=== PATIENT | male | born 1980 | race Caucasian/White ===

== ENCOUNTER 2016-06-17 11:43 | Emergency (ER) | payer OTHER ==
--- NOTE | 2016-06-17 14:05 | ED CLINICAL REPORT ---
Clinical Report - Physicians/Mid Levels [facility] [address] [place] [address] 06/17/2016 11:48 Patient: QUINTON GILMORE Time Seen: 12:52. Arrived- By private vehicle. Historian- patient. HISTORY OF PRESENT ILLNESS Chief Complaint: BLOOD PRESSURE ELEVATED. This started is chronic x years, but pt is trying to have hernia surgery done, and surgeon will not operate until pt's BP is under control and is still present. At its maximum, severity described as severe. When seen in the E.D., severity described as severe. Modifying factors. Not worsened by anything. Not relieved by anything. No current or associated symptoms. (Pt is completely asymptomatic. He states he was sent to the ED because his doctor had switched his meds, and the BP hadn't come down. Pt states he was previously on lisinopril, which seemed to work better, but was taken off of this and put on metoprolol. When he went back for his recheck today, his BP was still very high, so his doctor told him to increase his dose. However, they did not want to send him out with that high of a BP (220's/110's), so they sent him here.). Similar symptoms previously: ( Pt states he was dx with HTN in his 20's.). Recent medical care: The patient was seen recently at another facility in a clinic. REVIEW OF SYSTEMS No fever, sore throat, sinus drainage, nasal congestion or cough. No difficulty breathing, chest pain, abdominal pain, nausea or vomiting. No diarrhea, black stools, bloody stools, chills or difficulty with urination. No skin rash, back pain, calf pain, headache or blackouts. No double vision. No difficulty with ambulation. All systems otherwise negative, except as recorded above. PAST HISTORY Problems: Hypertension. Additional Surgeries: no known surgeries. Medications: CloNIDine HCl Oral 0.1 mg, now (Given at [facility]). Metoprolol Succinate ER Oral (Tablet Extended Release 24 Hour 25 mg) 3 tablets , daily (Just increased today). Allergies: No Known Drug Allergy. SOCIAL HISTORY Smoker- current status unknown. Alcohol use. No drug use. ADDITIONAL NOTES The nursing notes have been reviewed. PHYSICAL EXAM Vital Signs: 06/17/2016 11:54 BP: 237/121. HR: 70. RR: 16. O2 saturation: 100%. Temp: 98.2 F. Pain level now: 0/10. Have been reviewed. Appearance: Alert. No acute distress. Eyes: Pupils equal, round and reactive to light. Eyes normal inspection. ENT: Nose normal. Neck: Normal inspection. CVS: Normal heart rate and rhythm. Heart sounds normal. Pulses normal. Respiratory: No respiratory distress. Breath sounds normal. Abdomen: No visible injury. Soft and nontender. Back: Normal inspection. Skin: Skin warm and dry. Normal skin color. No rash. Normal skin turgor. Extremities: Extremities exhibit normal ROM. No lower extremity edema. Neuro: Oriented X 3. No motor deficit. No sensory deficit. LABS, X-RAYS, AND EKG Pulse Oximetry: 06/17/2016 11:54 O2 saturation: 100%. (FIO2 - room air). Interpretation: normal. PROGRESS AND PROCEDURES Course of Care: Pt was asymptomatic, and was not in hypertensive emergency, despite his very high pressure. I did speak with pt and his for some time, and ultimately, it was decided that pt would take the increased dose of metoprolol, as per his doctor's order, and also, restart his lisinopril, with which he'd had more success. Pt stated he had a follow-up appt with his doctor the following week, and could monitor his BP at the grocery store. Pt was given a dose of metoprolol here. No acute, emergent condition identified. Patient and spouse counseled in person regarding the patient's stable condition, test results, diagnosis and need for follow-up. Concerns were addressed. Old medical records reviewed. Disposition: Discharged. Condition: stable. CLINICAL IMPRESSION Uncontrolled essential hypertension. INSTRUCTIONS (Your blood pressure is very high. However, your body has adjusted to this level, and it is not causing any emergent damage to any of your organs. You will need to work with your doctor on an effective outpatient medication regimen to get this down, so that it does not cause damage to your heart and blood vessels over time. For now, take the increased dose of metoprolol that your doctor prescribed, and go back on your original dose of lisinopril. If your blood pressure is still above 145/95 after 2 days, you can increase the dose of your metoprolol to 100 mg (you can also split this into 50 mg twice a day).). Warnings: GENERAL WARNINGS: Return or contact your physician immediately if your condition worsens or changes unexpectedly, if not improving as expected, or if other problems arise. Your Current Medications: CONTINUE TAKING THE FOLLOWING MEDICATIONS: CloNIDine HCl Oral : 0.1 mg now, Given at [facility]. Metoprolol Succinate ER Oral : Tablet Extended Release 24 Hour 25 mg, 3 tablets daily, Just increased today. Follow-up: Follow up with your doctor Friday as scheduled. Understanding of the discharge instructions verbalized by patient. (Electronically signed by Teresa Ortiz MD 06/26/2016 21:41)
--- NOTE | 2016-06-17 14:05 | ED ORDER SUMMARY ---
..... Patient: QUINTON GILMORE OrderSheet [facility] VisitID: [id number] [address] [place] [address] 35y, M Registration Date/Time: 06/17/2016 ORDER SHEET Weight: 88.4 kg (stated) Allergies: No Known Drug Allergy GENERAL ORDERS: MEDICATION ORDERS: Metoprolol PO 50 mg (HIGH ALERT MEDICATION, NOW) (13:59 06/17/2016 Elvie GONZALEZ) (14:18 Cande Suero) IV FLUIDS: ORDER SHEET NOTES: [Electronically signed by Anthony Lui R.N. (14:29 06/17/2016)] [Electronically signed by Teresa Ortiz MD (21:41 06/26/2016)] [Electronically locked/signed by Anthony Lui R.N. (14:29 06/17/2016)]
--- NOTE | 2016-06-17 14:05 | ED ORDER SUMMARY ---
..... Patient: QUINTON GILMORE OrderSheet [facility] VisitID: [id number] [address] [place] [address] 35y, M Registration Date/Time: 06/17/2016 ORDER SHEET Weight: 88.4 kg (stated) Allergies: No Known Drug Allergy GENERAL ORDERS: MEDICATION ORDERS: Metoprolol PO 50 mg (HIGH ALERT MEDICATION, NOW) (13:59 06/17/2016 Elvie GONZALEZ) (14:18 Cande Suero) IV FLUIDS: ORDER SHEET NOTES: [Electronically signed by Anthony Lui R.N. (14:29 06/17/2016)] [Electronically signed by Teresa Ortiz MD (21:41 06/26/2016)] [Electronically locked/signed by Anthony Lui R.N. (14:29 06/17/2016)]
--- NOTE | 2016-06-17 14:05 | ED NURSING NOTES ---
Clinical Report - Nurses [facility] [address] [place] [address] 06/17/2016 11:48 Patient: QUINTON GILMORE TRIAGE Triage time 11:50 Jun 17 2016. Acuity: LEVEL 3. Chief Complaint: (High Blood Pressure). Alert. EDUARDO COMA SCORE: [place] Coma Scale: 15- eyes open spontaneously (4); best verbal response- oriented x 4 (5); best motor response- obeys commands (6). --12:05 Anthony Lui R.N. 11:54 06/17/16. BP: 237/121. HR: 70. RR: 16. O2 saturation: 100% on room air. Temp: 98.2 F. Pain level now: 0/10. --12:05 Anthony Lui R.N. Weight: 88.4 kg stated. Height/Length: 73 inches Per Patient. BMI: 25.7. --12:02 Anthony Lui R.N. Medications Metoprolol Succinate ER Oral (Tablet Extended Release 24 Hour 25 mg) 3 tablets , daily (Just increased today). --11:59 Anthony Lui R.N. CloNIDine HCl Oral 0.1 mg, now (Given at [facility]). --12:01 Anthony Lui R.N. Medication/allergy information source: the patient. --12:05 Anthony Lui R.N. Allergies No Known Drug Allergy. --12:00 Anthony Lui R.N. History Arrived by private vehicle. Historian: patient. Accompanied by family. ( Hibh Blood Pressure problem. Pt states that he needs to have a surgery but they won't do it until he gets his BP normalized.). Onset. (About 20 years ago, but BP is getting worse). 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 PAST MEDICAL HX: Hypertension. Immunizations: status is unknown. SURGERY HX: No history of previous surgery. SOCIAL HX: Heavy tobacco smoker (cigarette)- 1 pack per day. Alcohol use; consumes three liquor daily. No drug use. No infectious disease exposure. ABUSE ASSESSMENT: No report of abuse. FALL RISK ASSESSMENT: Fall risk assessment completed. No fall risk identified. NUTRITIONAL RISK ASSESSMENT: The nutritional risk assessment revealed no deficiencies. FUNCTIONAL ASSESSMENT: Functional assessment: no impairments noted. LEARNING NEEDS ASSESSMENT: The learning needs assessment revealed no barriers. SKIN INTEGRITY ASSESSMENT: Skin integrity risk assessment completed. No skin integrity risk identified. --12:05 Anthony Lui R.N. ( Seen at [facility] today where his Metoprolol ER dose was increased from 25 to 75mg daily). --12:16 Anthony Lui R.N. Interventions ID band on patient. To treatment room. --12:05 Anthony Lui R.N. PHYSICAL ASSESSMENT Ambulatory to room. GENERAL / NEURO / PSYCH: Alert. Oriented X 4. HEENT: No facial asymmetry noted. RESPIRATORY: Respirations not labored. CVS: Normal sinus rhythm noted. Pulses within normal limits. GI / : Abdomen soft. SKIN: Skin is warm and dry. --12:06 Anthony Lui R.N. NURSING PROGRESS NOTES Monitoring of patient in place. Patient gowned. Reassurance given. Patient identifiers checked. Side rails up. Bed placed in lowest position. Brakes of bed on. Patient ready for evaluation- chart flagged and ED physician notified. --12:06 Anthony Lui R.N. 12:45 06/17/16. BP: 208/114. HR: 67. RR: 16. O2 saturation: 99% on room air. Pain level now: 0/10. --12:47 Anthony Lui R.N. 14:08 06/17/2016 Metoprolol PO Tablets 50 mg given. Allergies verified and confirmed 5 rights. --14:18 Anthony Lui R.N. 13:30 06/17/16. BP: 223/115. HR: 76. RR: 16. O2 saturation: 99% on room air. Temp: 98.5 F (oral). Pain level now: 0/10. --14:23 Anthony Lui R.N. DISPOSITION / DISCHARGE 14:05 06/17/16. BP: 236/119. HR: 74. RR: 16. O2 saturation: 99% on room air. Temp: 98.5 F (oral). Pain level now: 0/10. --14:25 Anthony Lui R.N. Departure time: 1415. --14:25 Anthony Lui R.N. 14:15. Condition at departure: unchanged. No learning barriers present. Discharge instructions provided and reviewed with the patient. Reviewed medication(s) dosing information. Reviewed referral to family practice for followup. Patient verbalized understanding. Written instructions provided in Greenlandic. The patient was discharged by the physician. He was discharged home and accompanied by spouse. He left the Emergency Department ambulatory and via private vehicle. Spouse driving. --14:28 Anthony Lui R.N. Locked/Released at 06/17/2016 14:29 by Anthony Lui R.N.
--- NOTE | 2016-06-17 14:05 | ED NURSING NOTES ---
Clinical Report - Nurses [facility] [address] [place] [address] 06/17/2016 11:48 Patient: QUINTON GILMORE TRIAGE Triage time 11:50 Jun 17 2016. Acuity: LEVEL 3. Chief Complaint: (High Blood Pressure). Alert. EDUARDO COMA SCORE: [place] Coma Scale: 15- eyes open spontaneously (4); best verbal response- oriented x 4 (5); best motor response- obeys commands (6). --12:05 Anthony Lui R.N. 11:54 06/17/16. BP: 237/121. HR: 70. RR: 16. O2 saturation: 100% on room air. Temp: 98.2 F. Pain level now: 0/10. --12:05 Anthony Lui R.N. Weight: 88.4 kg stated. Height/Length: 73 inches Per Patient. BMI: 25.7. --12:02 Anthony Lui R.N. Medications Metoprolol Succinate ER Oral (Tablet Extended Release 24 Hour 25 mg) 3 tablets , daily (Just increased today). --11:59 Anthony Lui R.N. CloNIDine HCl Oral 0.1 mg, now (Given at [facility]). --12:01 Anthony Lui R.N. Medication/allergy information source: the patient. --12:05 Anthony Lui R.N. Allergies No Known Drug Allergy. --12:00 Anthony Lui R.N. History Arrived by private vehicle. Historian: patient. Accompanied by family. ( Hibh Blood Pressure problem. Pt states that he needs to have a surgery but they won't do it until he gets his BP normalized.). Onset. (About 20 years ago, but BP is getting worse). 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 PAST MEDICAL HX: Hypertension. Immunizations: status is unknown. SURGERY HX: No history of previous surgery. SOCIAL HX: Heavy tobacco smoker (cigarette)- 1 pack per day. Alcohol use; consumes three liquor daily. No drug use. No infectious disease exposure. ABUSE ASSESSMENT: No report of abuse. FALL RISK ASSESSMENT: Fall risk assessment completed. No fall risk identified. NUTRITIONAL RISK ASSESSMENT: The nutritional risk assessment revealed no deficiencies. FUNCTIONAL ASSESSMENT: Functional assessment: no impairments noted. LEARNING NEEDS ASSESSMENT: The learning needs assessment revealed no barriers. SKIN INTEGRITY ASSESSMENT: Skin integrity risk assessment completed. No skin integrity risk identified. --12:05 Anthony Lui R.N. ( Seen at [facility] today where his Metoprolol ER dose was increased from 25 to 75mg daily). --12:16 Anthony Lui R.N. Interventions ID band on patient. To treatment room. --12:05 Anthony Lui R.N. PHYSICAL ASSESSMENT Ambulatory to room. GENERAL / NEURO / PSYCH: Alert. Oriented X 4. HEENT: No facial asymmetry noted. RESPIRATORY: Respirations not labored. CVS: Normal sinus rhythm noted. Pulses within normal limits. GI / : Abdomen soft. SKIN: Skin is warm and dry. --12:06 Anthony Lui R.N. NURSING PROGRESS NOTES Monitoring of patient in place. Patient gowned. Reassurance given. Patient identifiers checked. Side rails up. Bed placed in lowest position. Brakes of bed on. Patient ready for evaluation- chart flagged and ED physician notified. --12:06 Anthony Lui R.N. 12:45 06/17/16. BP: 208/114. HR: 67. RR: 16. O2 saturation: 99% on room air. Pain level now: 0/10. --12:47 Anthony Lui R.N. 14:08 06/17/2016 Metoprolol PO Tablets 50 mg given. Allergies verified and confirmed 5 rights. --14:18 Anthony Lui R.N. 13:30 06/17/16. BP: 223/115. HR: 76. RR: 16. O2 saturation: 99% on room air. Temp: 98.5 F (oral). Pain level now: 0/10. --14:23 Anthony Lui R.N. DISPOSITION / DISCHARGE 14:05 06/17/16. BP: 236/119. HR: 74. RR: 16. O2 saturation: 99% on room air. Temp: 98.5 F (oral). Pain level now: 0/10. --14:25 Anthony Lui R.N. Departure time: 1415. --14:25 Anthony Lui R.N. 14:15. Condition at departure: unchanged. No learning barriers present. Discharge instructions provided and reviewed with the patient. Reviewed medication(s) dosing information. Reviewed referral to family practice for followup. Patient verbalized understanding. Written instructions provided in Cook Islander. The patient was discharged by the physician. He was discharged home and accompanied by spouse. He left the Emergency Department ambulatory and via private vehicle. Spouse driving. --14:28 Anthony Lui R.N. Locked/Released at 06/17/2016 14:29 by Anthony Lui R.N.
--- NOTE | 2016-06-17 14:05 | ED CLINICAL REPORT ---
Clinical Report - Physicians/Mid Levels [facility] [address] [place] [address] 06/17/2016 11:48 Patient: QUINTON GILMORE Time Seen: 12:52. Arrived- By private vehicle. Historian- patient. HISTORY OF PRESENT ILLNESS Chief Complaint: BLOOD PRESSURE ELEVATED. This started is chronic x years, but pt is trying to have hernia surgery done, and surgeon will not operate until pt's BP is under control and is still present. At its maximum, severity described as severe. When seen in the E.D., severity described as severe. Modifying factors. Not worsened by anything. Not relieved by anything. No current or associated symptoms. (Pt is completely asymptomatic. He states he was sent to the ED because his doctor had switched his meds, and the BP hadn't come down. Pt states he was previously on lisinopril, which seemed to work better, but was taken off of this and put on metoprolol. When he went back for his recheck today, his BP was still very high, so his doctor told him to increase his dose. However, they did not want to send him out with that high of a BP (220's/110's), so they sent him here.). Similar symptoms previously: ( Pt states he was dx with HTN in his 20's.). Recent medical care: The patient was seen recently at another facility in a clinic. REVIEW OF SYSTEMS No fever, sore throat, sinus drainage, nasal congestion or cough. No difficulty breathing, chest pain, abdominal pain, nausea or vomiting. No diarrhea, black stools, bloody stools, chills or difficulty with urination. No skin rash, back pain, calf pain, headache or blackouts. No double vision. No difficulty with ambulation. All systems otherwise negative, except as recorded above. PAST HISTORY Problems: Hypertension. Additional Surgeries: no known surgeries. Medications: CloNIDine HCl Oral 0.1 mg, now (Given at [facility]). Metoprolol Succinate ER Oral (Tablet Extended Release 24 Hour 25 mg) 3 tablets , daily (Just increased today). Allergies: No Known Drug Allergy. SOCIAL HISTORY Smoker- current status unknown. Alcohol use. No drug use. ADDITIONAL NOTES The nursing notes have been reviewed. PHYSICAL EXAM Vital Signs: 06/17/2016 11:54 BP: 237/121. HR: 70. RR: 16. O2 saturation: 100%. Temp: 98.2 F. Pain level now: 0/10. Have been reviewed. Appearance: Alert. No acute distress. Eyes: Pupils equal, round and reactive to light. Eyes normal inspection. ENT: Nose normal. Neck: Normal inspection. CVS: Normal heart rate and rhythm. Heart sounds normal. Pulses normal. Respiratory: No respiratory distress. Breath sounds normal. Abdomen: No visible injury. Soft and nontender. Back: Normal inspection. Skin: Skin warm and dry. Normal skin color. No rash. Normal skin turgor. Extremities: Extremities exhibit normal ROM. No lower extremity edema. Neuro: Oriented X 3. No motor deficit. No sensory deficit. LABS, X-RAYS, AND EKG Pulse Oximetry: 06/17/2016 11:54 O2 saturation: 100%. (FIO2 - room air). Interpretation: normal. PROGRESS AND PROCEDURES Course of Care: Pt was asymptomatic, and was not in hypertensive emergency, despite his very high pressure. I did speak with pt and his for some time, and ultimately, it was decided that pt would take the increased dose of metoprolol, as per his doctor's order, and also, restart his lisinopril, with which he'd had more success. Pt stated he had a follow-up appt with his doctor the following week, and could monitor his BP at the grocery store. Pt was given a dose of metoprolol here. No acute, emergent condition identified. Patient and spouse counseled in person regarding the patient's stable condition, test results, diagnosis and need for follow-up. Concerns were addressed. Old medical records reviewed. Disposition: Discharged. Condition: stable. CLINICAL IMPRESSION Uncontrolled essential hypertension. INSTRUCTIONS (Your blood pressure is very high. However, your body has adjusted to this level, and it is not causing any emergent damage to any of your organs. You will need to work with your doctor on an effective outpatient medication regimen to get this down, so that it does not cause damage to your heart and blood vessels over time. For now, take the increased dose of metoprolol that your doctor prescribed, and go back on your original dose of lisinopril. If your blood pressure is still above 145/95 after 2 days, you can increase the dose of your metoprolol to 100 mg (you can also split this into 50 mg twice a day).). Warnings: GENERAL WARNINGS: Return or contact your physician immediately if your condition worsens or changes unexpectedly, if not improving as expected, or if other problems arise. Your Current Medications: CONTINUE TAKING THE FOLLOWING MEDICATIONS: CloNIDine HCl Oral : 0.1 mg now, Given at [facility]. Metoprolol Succinate ER Oral : Tablet Extended Release 24 Hour 25 mg, 3 tablets daily, Just increased today. Follow-up: Follow up with your doctor Friday as scheduled. Understanding of the discharge instructions verbalized by patient. (Electronically signed by Teresa Ortiz MD 06/26/2016 21:41)
--- NOTE | 2016-06-26 21:41 | ED MAR SUMMARY ---
..... Medication Administration Record [facility] [address] [place] [address] Patient: QUINTON GILMORE Visit ID: [id number] 35y, M Weight: 88.4 kg Height/Length: 73 in BMI: 25.7 ALLERGIES: No Known Drug Allergy Given 14:08 06/17/2016 Anthony Lui R.N. Medication Administered: METOPROLOL [PO], Dose: 50 mg Tablets PO. Medication Ordered: Metoprolol PO 50 mg (HIGH ALERT MEDICATION, NOW).
--- NOTE | 2016-06-26 21:41 | ED MAR SUMMARY ---
..... Medication Administration Record [facility] [address] [place] [address] Patient: QUINTON GILMORE Visit ID: [id number] 35y, M Weight: 88.4 kg Height/Length: 73 in BMI: 25.7 ALLERGIES: No Known Drug Allergy Given 14:08 06/17/2016 Anthony Lui R.N. Medication Administered: METOPROLOL [PO], Dose: 50 mg Tablets PO. Medication Ordered: Metoprolol PO 50 mg (HIGH ALERT MEDICATION, NOW).
--- NOTE | 2016-06-26 21:41 | ED MED RECONCILIATION SUMMARY ---
Patient: QUINTON GILMORE Medication Reconciliation Report [facility] VisitID: [id number] [address] [place] [address] 35y, M Registration Date/Time: 06/17/2016 Weight: 88.4 kg Height/Length: 73 in. BMI: 25.7 ALLERGIES: No Known Drug Allergy The patient's Home Medications are listed below: CONTINUE TAKING THE FOLLOWING MEDICATIONS: CloNIDine HCl Oral 0.1 mg, now, Given at [facility] Metoprolol Succinate ER Oral (25 mg) 3 tablets , daily, Just increased today The source(s) of the original Home Medication information: patient The following Medications were given to the patient in the Emergency Department: Metoprolol [PO] PO 50 mg, administered: 06/17/2016 2:08:00 PM The following Medications were prescribed to the patient: None.
--- NOTE | 2016-06-26 21:41 | ED DISCHARGE INSTRUCTIONS ---
Patient: QUINTON GILMORE General Instructions [facility] VisitID: [id number] [place] [address] 35y, M Registration Date/Time: 06/17/2016 Uncontrolled essential hypertension. INSTRUCTIONS (Your blood pressure is very high. However, your body has adjusted to this level, and it is not causing any emergent damage to any of your organs. You will need to work with your doctor on an effective outpatient medication regimen to get this down, so that it does not cause damage to your heart and blood vessels over time. For now, take the increased dose of metoprolol that your doctor prescribed, and go back on your original dose of lisinopril. If your blood pressure is still above 145/95 after 2 days, you can increase the dose of your metoprolol to 100 mg (you can also split this into 50 mg twice a day).). Warnings: GENERAL WARNINGS: Return or contact your physician immediately if your condition worsens or changes unexpectedly, if not improving as expected, or if other problems arise. Your Current Medications: CONTINUE TAKING THE FOLLOWING MEDICATIONS: CloNIDine HCl Oral : 0.1 mg now, Given at [facility]. Metoprolol Succinate ER Oral : Tablet Extended Release 24 Hour 25 mg, 3 tablets daily, Just increased today. Follow-up: Follow up with your doctor Friday as scheduled. Understanding of the discharge instructions verbalized by patient. ADDITIONAL INFORMATION Hypertension, Out Of Control (Established) Your blood pressure was unusually high today. This can occur as a result of missing doses of your blood pressure medicine. Some asthma inhalers, decongestants, diet pills, and street drugs such as cocaine and amphetamine can worsen hypertension. An increase in body weight, increase in salt intake, smoking, and caffeine are other causes. Emotional upset or acute pain can cause a sudden rapid rise in blood pressure which may return to normal after a period of rest. A normal blood pressure is less than 140/90. The first (top) number is the systolic pressure. The second (bottom) number is the diastolic pressure. Hypertension exists when either the top number is 140 or higher, OR the bottom number is 90 or higher on repeated measurements. Home Care: All patients with high blood pressure should do the following to lower their pressure. If you are on blood pressure medicines, then these methods may reduce or eliminate your need for medicines in the future. Begin a weight-loss program if you are overweight. Reduce your salt intake. Avoid high-salt foods (olives, pickles, smoked meats, salted potato chips, etc.). Do not add salt to your food at the table. Use only small amounts of salt when cooking. Begin an exercise program. Discuss with your doctor what type of exercise program would be best for you. It doesnt have to be difficult. Even brisk walking for 20 minutes3 times a week is a good form of exercise. Avoid medicines which contain heart stimulants. This includes many cold and sinus decongestant pills and sprays as well as diet pills. Check the warnings about hypertension on the label. Stimulants such as amphetamine or cocaine could be lethal for someone with hypertension. Never take these. Limit your caffeine intake or switch to decaf. Stop smoking. If you are a long-time smoker, this can be hard. Enroll in a stop-smoking program to improve your chance of success. Talk to your physician about ways to improve your chance of success. Learning how to handle stress better is an important part of any program to lower blood pressure. Learn about relaxation methods such as meditation, yoga, or biofeedback. If medicines were prescribed, take them exactly as directed. Missing doses may cause your blood pressure to get out of control. Consider buying an automatic blood pressure machine (available at many pharmacies). Use this to monitor your blood pressure and report to your doctor. Follow Up: Regular visits to your own doctor for blood pressure checks and medicine adjustment is an important part of your care. Make a follow-up appointment as directed by our staff. Get Prompt Medical Attention if any of the following occur: Chest, arm, shoulder, neck, or upper back pain Shortness of breath Severe headache Throbbing or rushing sound in the ears Nosebleed Extreme drowsiness, confusion, or fainting Dizziness or vertigo (dizziness with spinning sensation) Weakness of an arm or leg or one side of the face Difficulty with speech or vision You have been given the following additional information: Hypertension, Established, Out Of Control (Electronically signed by Teresa Ortiz MD 06/26/2016 21:41)
--- NOTE | 2016-06-26 21:41 | ED MED RECONCILIATION SUMMARY ---
Patient: QUINTON GILMORE Medication Reconciliation Report [facility] VisitID: [id number] [address] [place] [address] 35y, M Registration Date/Time: 06/17/2016 Weight: 88.4 kg Height/Length: 73 in. BMI: 25.7 ALLERGIES: No Known Drug Allergy The patient's Home Medications are listed below: CONTINUE TAKING THE FOLLOWING MEDICATIONS: CloNIDine HCl Oral 0.1 mg, now, Given at [facility] Metoprolol Succinate ER Oral (25 mg) 3 tablets , daily, Just increased today The source(s) of the original Home Medication information: patient The following Medications were given to the patient in the Emergency Department: Metoprolol [PO] PO 50 mg, administered: 06/17/2016 2:08:00 PM The following Medications were prescribed to the patient: None.
== END 2016-06-17 14:15 | disposition home or self-care (01) ==
LOC: ED SRH 11:43
DX: I10 Essential (primary) hypertension (principal)

== ENCOUNTER 2016-07-11 15:09 | Emergency (ER) | payer OTHER ==
--- NOTE | 2016-07-11 15:46 | ED ORDER SUMMARY ---
..... Patient: QUINTON GILMORE OrderSheet [facility] VisitID: [id number] [address] [place] [address] 35y, M Registration Date/Time: 07/11/2016 ORDER SHEET Weight: 90.7 kg (stated) Allergies: No Known Drug Allergy GENERAL ORDERS: MEDICATION ORDERS: Keflex PO 500 mg (NOW) (15:38 07/11/2016 Dot Woods) (Ack 15:43 SRoberts R.N.) (15:53 SRoberts R.N.) Bactrim DS PO (Tablet 800-160 mg) 1 tab (NOW) (15:38 07/11/2016 Dot Woods) (Ack 15:43 SRoberts R.N.) (15:53 SRoberts R.N.) Benadryl PO 50 mg (NOW) (15:38 07/11/2016 Dot Woods) (Ack 15:43 SRoberts R.N.) (15:53 SRoberts R.N.) Prednisone PO 60 mg (NOW) (15:38 07/11/2016 Dot Woods) (Ack 15:43 SRoberts R.N.) (15:53 SRoberts R.N.) IV FLUIDS: ORDER SHEET NOTES: [Electronically signed by Lila Suazo R.N. (16:15 07/11/2016)] [Electronically signed by Jye Torres Dr. (06:09 07/14/2016)] [Electronically locked/signed by Lila Suazo R.N. (16:15 07/11/2016)]
--- NOTE | 2016-07-11 15:46 | ED ORDER SUMMARY ---
..... Patient: QUINTON GILMORE OrderSheet [facility] VisitID: [id number] [address] [place] [address] 35y, M Registration Date/Time: 07/11/2016 ORDER SHEET Weight: 90.7 kg (stated) Allergies: No Known Drug Allergy GENERAL ORDERS: MEDICATION ORDERS: Keflex PO 500 mg (NOW) (15:38 07/11/2016 Dot Woods) (Ack 15:43 SRoberts R.N.) (15:53 SRoberts R.N.) Bactrim DS PO (Tablet 800-160 mg) 1 tab (NOW) (15:38 07/11/2016 Dot Woods) (Ack 15:43 SRoberts R.N.) (15:53 SRoberts R.N.) Benadryl PO 50 mg (NOW) (15:38 07/11/2016 Dot Woods) (Ack 15:43 SRoberts R.N.) (15:53 SRoberts R.N.) Prednisone PO 60 mg (NOW) (15:38 07/11/2016 Dot Woods) (Ack 15:43 SRoberts R.N.) (15:53 SRoberts R.N.) IV FLUIDS: ORDER SHEET NOTES: [Electronically signed by Lila Suazo R.N. (16:15 07/11/2016)] [Electronically signed by Jey Torres Dr. (06:09 07/14/2016)] [Electronically locked/signed by Lila Suazo R.N. (16:15 07/11/2016)]
--- NOTE | 2016-07-11 15:46 | ED NURSING NOTES ---
Clinical Report - Nurses [facility] [address] [place] [address] 07/11/2016 15:11 Patient: QUINTON GILMORE TRIAGE Triage time 15:27. Acuity: LEVEL 3. Chief Complaint: INJURY TO FACE and UPPER and LOWER LIP (lip swelling, not an injury.). Alert. No acute distress. --15:37 Lila Suazo R.N. 15:27 07/11/16. BP: 183/80. HR: 72. RR: 20. O2 saturation: 100%. Temp: 98.3 F. Pain level now: 04/26. --15:37 Lila Suazo R.N. 15:27 07/11/16. BP: 183/80. HR: 72. RR: 20. O2 saturation: 100%. Temp: 98.3 F. Pain level now: 04/26. --15:37 Lila Suazo R.N. Weight: 90.7 kg stated. Height/Length: 72 inches Per Patient. BMI: 27.1. --15:35 Lila Suazo R.N. Medications Metoprolol Succinate ER Oral (Tablet Extended Release 24 Hour 25 mg) 3 tablets , daily (Just increased today). --15:29 Lila Suazo R.N. AmLODIPine Besylate Oral 20mg , daily. --15:32 Lila Suazo R.N. Metoprolol Tartrate Oral 100 mg, day. --15:32 Lila Suazo R.N. Lisinopril Oral 20 mg, daily. --15:33 Lila Suazo R.N. HydrALAZINE HCl Oral (Tablet 50 mg) 1 tablet, tid. --15:33 Lila Suazo R.N. Percocet Oral 10/650 mg, PRN. --15:33 Lila Suazo R.N. Ibuprofen Oral 400 mg, daily. --15:34 Lila Suazo R.N. Medication/allergy information source: the patient. --15:37 Lila Suazo R.N. Allergies No Known Drug Allergy. --15:29 Lila Suazo R.N. History Arrived by private vehicle. Historian: patient and family. Accompanied by family. Primary physician ([facility]). Occurred at home. 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 PAST MEDICAL HX: Tetanus status: unknown. SOCIAL HX: Heavy tobacco smoker (cigarette)- less than 1 pack per day. Alcohol use; consumes two liquor daily. No drug use. FALL RISK ASSESSMENT: Fall risk assessment completed. No fall risk identified. NUTRITIONAL RISK ASSESSMENT: The nutritional risk assessment revealed no deficiencies. FUNCTIONAL ASSESSMENT: Functional assessment: no impairments noted. LEARNING NEEDS ASSESSMENT: The learning needs assessment revealed no barriers. SKIN INTEGRITY ASSESSMENT: Skin integrity risk assessment completed. No skin integrity risk identified. --15:37 Lila Suazo R.N. ADDITIONAL SURGERIES: Hernia Repair. --15:34 Lila Suazo R.N. Interventions ID band on patient. To room. --15:37 Lila Suazo R.N. PHYSICAL ASSESSMENT Ambulatory to room. Patient gowned. HEENT: Head non-tender. EOM intact. Mouth: swelling. Voice within normal limits. No swelling of head. Mucous membranes are pink. RESPIRATORY: Respirations not labored. CVS: Capillary refill less than 2 seconds. BACK: No neck or back tenderness. ROM normal to the neck and back. SKIN: Skin is warm and dry. --15:37 Lila Suazo R.N. NURSING PROGRESS NOTES Head of bed elevated. Two patient identifiers checked. Call light placed in reach. Side rails up x 2. Bed placed in lowest position. Brakes of bed on. Patient ready for evaluation. --15:38 Lila Suazo R.N. 15:53 07/11/2016 Keflex (Cephalexin) PO 500 mg given. Allergies verified and confirmed 5 rights. --15:53 Lila Suazo R.N. 15:53 07/11/2016 Bactrim DS (Sulfamethoxazole-TMP DS) PO 1 tab given. Allergies verified and confirmed 5 rights. --15:53 Lila Suazo R.N. 15:53 07/11/2016 Benadryl (DiphenhydrAMINE HCl) PO 50 mg given. Allergies verified, confirmed 5 rights and sedative warning given to the patient. --15:53 Lila Suazo R.N. 15:53 07/11/2016 Prednisone PO 60 mg given. Allergies verified and confirmed 5 rights. --15:53 Lila Suazo R.N. DISPOSITION / DISCHARGE Condition at departure: improved. No learning barriers present. Discharge instructions provided and reviewed with the patient and spouse. Reviewed medication(s) side effects, precautions, dosing and course information. Prescription(s) given to the patient. Patient verbalized understanding. Written instructions provided in Chinese. The patient was discharged home and accompanied by spouse. He left the Emergency Department ambulatory and via private vehicle. Spouse driving. Medication list reviewed and validated. --16:15 Lila Suazo R.N. 16:13 07/11/16. BP: 156/78. HR: 77. RR: 20. O2 saturation: 99%. Temp: deferred. Pain level now: 03/26. 15:27 07/11/16. BP: 183/80. HR: 72. RR: 20. O2 saturation: 100%. Temp: 98.3 F. Pain level now: 04/26. --16:15 Lila Suazo R.N. Locked/Released at 07/11/2016 16:15 by Lila Suazo R.N.
--- NOTE | 2016-07-11 15:46 | ED NURSING NOTES ---
Clinical Report - Nurses [facility] [address] [place] [address] 07/11/2016 15:11 Patient: QUINTON GILMORE TRIAGE Triage time 15:27. Acuity: LEVEL 3. Chief Complaint: INJURY TO FACE and UPPER and LOWER LIP (lip swelling, not an injury.). Alert. No acute distress. --15:37 Lila Suazo R.N. 15:27 07/11/16. BP: 183/80. HR: 72. RR: 20. O2 saturation: 100%. Temp: 98.3 F. Pain level now: 04/26. --15:37 Lila Suazo R.N. 15:27 07/11/16. BP: 183/80. HR: 72. RR: 20. O2 saturation: 100%. Temp: 98.3 F. Pain level now: 04/26. --15:37 Lila Suazo R.N. Weight: 90.7 kg stated. Height/Length: 72 inches Per Patient. BMI: 27.1. --15:35 Lila Suazo R.N. Medications Metoprolol Succinate ER Oral (Tablet Extended Release 24 Hour 25 mg) 3 tablets , daily (Just increased today). --15:29 Lila Suazo R.N. AmLODIPine Besylate Oral 20mg , daily. --15:32 Lial Suazo R.N. Metoprolol Tartrate Oral 100 mg, day. --15:32 Lila Suazo R.N. Lisinopril Oral 20 mg, daily. --15:33 Lila Suazo R.N. HydrALAZINE HCl Oral (Tablet 50 mg) 1 tablet, tid. --15:33 Lila Suazo R.N. Percocet Oral 10/650 mg, PRN. --15:33 Lila Suazo R.N. Ibuprofen Oral 400 mg, daily. --15:34 Lila Suazo R.N. Medication/allergy information source: the patient. --15:37 Lila Suazo R.N. Allergies No Known Drug Allergy. --15:29 Lila Suazo R.N. History Arrived by private vehicle. Historian: patient and family. Accompanied by family. Primary physician ([facility]). Occurred at home. 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 PAST MEDICAL HX: Tetanus status: unknown. SOCIAL HX: Heavy tobacco smoker (cigarette)- less than 1 pack per day. Alcohol use; consumes two liquor daily. No drug use. FALL RISK ASSESSMENT: Fall risk assessment completed. No fall risk identified. NUTRITIONAL RISK ASSESSMENT: The nutritional risk assessment revealed no deficiencies. FUNCTIONAL ASSESSMENT: Functional assessment: no impairments noted. LEARNING NEEDS ASSESSMENT: The learning needs assessment revealed no barriers. SKIN INTEGRITY ASSESSMENT: Skin integrity risk assessment completed. No skin integrity risk identified. --15:37 Lila Suazo R.N. ADDITIONAL SURGERIES: Hernia Repair. --15:34 Lila Suazo R.N. Interventions ID band on patient. To room. --15:37 Lila Suazo R.N. PHYSICAL ASSESSMENT Ambulatory to room. Patient gowned. HEENT: Head non-tender. EOM intact. Mouth: swelling. Voice within normal limits. No swelling of head. Mucous membranes are pink. RESPIRATORY: Respirations not labored. CVS: Capillary refill less than 2 seconds. BACK: No neck or back tenderness. ROM normal to the neck and back. SKIN: Skin is warm and dry. --15:37 Lila Suazo R.N. NURSING PROGRESS NOTES Head of bed elevated. Two patient identifiers checked. Call light placed in reach. Side rails up x 2. Bed placed in lowest position. Brakes of bed on. Patient ready for evaluation. --15:38 Lila Suazo R.N. 15:53 07/11/2016 Keflex (Cephalexin) PO 500 mg given. Allergies verified and confirmed 5 rights. --15:53 Lila Suazo R.N. 15:53 07/11/2016 Bactrim DS (Sulfamethoxazole-TMP DS) PO 1 tab given. Allergies verified and confirmed 5 rights. --15:53 Lila Suazo R.N. 15:53 07/11/2016 Benadryl (DiphenhydrAMINE HCl) PO 50 mg given. Allergies verified, confirmed 5 rights and sedative warning given to the patient. --15:53 Lila Suazo R.N. 15:53 07/11/2016 Prednisone PO 60 mg given. Allergies verified and confirmed 5 rights. --15:53 Lila Suazo R.N. DISPOSITION / DISCHARGE Condition at departure: improved. No learning barriers present. Discharge instructions provided and reviewed with the patient and spouse. Reviewed medication(s) side effects, precautions, dosing and course information. Prescription(s) given to the patient. Patient verbalized understanding. Written instructions provided in Occitan. The patient was discharged home and accompanied by spouse. He left the Emergency Department ambulatory and via private vehicle. Spouse driving. Medication list reviewed and validated. --16:15 Lila Suazo R.N. 16:13 07/11/16. BP: 156/78. HR: 77. RR: 20. O2 saturation: 99%. Temp: deferred. Pain level now: 03/26. 15:27 07/11/16. BP: 183/80. HR: 72. RR: 20. O2 saturation: 100%. Temp: 98.3 F. Pain level now: 04/26. --16:15 Lila Suazo R.N. Locked/Released at 07/11/2016 16:15 by Lila Suazo R.N.
--- NOTE | 2016-07-11 15:46 | ED CLINICAL REPORT ---
Clinical Report - Physicians/Mid Levels [facility] [address] [place] [address] 07/11/2016 15:11 Patient: QUINTON GILMORE Time Seen: 1528. Arrived- By private vehicle. Historian- patient. HISTORY OF PRESENT ILLNESS Chief Complaint: FACIAL SWELLING. The patient has had swelling involving the lips (left). This started past several days and is still present (unchanged). It was abrupt in onset and has been constant but is not gone now. A possible cause has been identified (lisinopril). Was not recently exposed to poison linus or poison oak. No recent food exposure. No treatment prior to arrival. (also had recent inguinal hernia surgery repair on the left with redness and swelling to the proximal thigh.). Similar symptoms previously: None. Recent medical care: The patient was seen recently by a health care provider (had inguinal hernia repair a few days ago). REVIEW OF SYSTEMS No fever, headache, weakness, numbness or chest pain. No abdominal pain. All systems otherwise negative, except as recorded above. PAST HISTORY See nurses notes. Medications: Ibuprofen Oral 400 mg, daily. Percocet Oral 10/650 mg, PRN. HydrALAZINE HCl Oral (Tablet 50 mg) 1 tablet, tid. Lisinopril Oral 20 mg, daily. Metoprolol Tartrate Oral 100 mg, day. AmLODIPine Besylate Oral 20mg , daily. Metoprolol Succinate ER Oral (Tablet Extended Release 24 Hour 25 mg) 3 tablets , daily (Just increased today). Allergies: No Known Drug Allergy. SOCIAL HISTORY Smoker- current status unknown. Alcohol use. No drug use. No recent travel. Is a local resident. ADDITIONAL NOTES The nursing notes have been reviewed. PHYSICAL EXAM Vital Signs: 07/11/2016 15:27 BP: 183/80. HR: 72. RR: 20. O2 saturation: 100%. Temp: 98.3 F. Pain level now: 2/10. Hypertensive. Oxygen saturation normal. Appearance: Alert. Oriented X3. No acute distress. Head and Neck: Normal external inspection. Eyes: Pupils equal, round and reactive to light. (swelling to the left upper lip. no erythema, crepitus, or other abnormalities. no brawny edema.). ENT: Ears normal. Nose normal. Pharynx normal. Voice normal. Voice not hoarse or muffled. Neck: Neck supple. CVS: Normal heart rate and rhythm. Heart sounds normal. Respiratory: No respiratory distress. No respiratory distress. Breath sounds normal. No stridor, wheezes, rales or rhonchi. Abdomen: Nontender. No organomegaly. Skin: Medium area of erythema with tenderness, warmth and swelling to left thigh (proximal medial.). Extremities: Normal external inspection. Extremities nontender. Skin: (wound to left groin is c/d/i). Neuro: Oriented X 3. No motor deficit. No sensory deficit. PROGRESS AND PROCEDURES Course of Care: the patient is a pleasant 35-year-old male with past pertinent medical history for hypertension on lisinopril in addition to recent hernia repair and left. Swelling has been ongoing for the past several days. Has been unchanged since initial presentation. Patient also is reporting unrelated left-sided inguinal erythema which appears to be cellulitis on examination. No systemic signs symptoms while here in the emergency department or at home. Antibiotics have been given. patient was monitored here in the emergency department without any worsening of symptoms. Because of the angioedema has been going on for the past several days and is unchanged, do not feel patient will have an acute exacerbation. Patient instructed to not take any YFN inhibitor's including but not limited to lisinopril, captopril, and enalapril etc. Patient was instructed to put this on his allergy list. No family history of hereditary angioedema. Antibiotics for the cellulitis has been given. No signs of sepsis at this time. Do not feel further workup here in emergency is required. Patient is resting in bed and in no acute distress. Patient is ambulatory without any abnormalities. Handout in regards to cellulitis andangioedema as been provided. Discussed with the patient is workup here in the emergency department included home care, follow-up, and return precautions. All questions have been answered. The patient expressed understanding of these instructions and was agreeable to them. Disposition: Discharged. Condition: good. CLINICAL IMPRESSION 07/11/2016 15:27 BP: 183/80. HR: 72. RR: 20. O2 saturation: 100%. Temp: 98.3 F. Pain level now: 10. Blood pressure normal. Oxygen saturation normal. Essential hypertension. 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 Cellulitis of the left thigh (acute). INSTRUCTIONS Warnings: GENERAL WARNINGS: Return or contact your physician immediately if your condition worsens or changes unexpectedly, if not improving as expected, or if other problems arise. Specifically return if pain, vomiting, bleeding, breathing difficulty or fever. Your Current Medications: STOP TAKING THE FOLLOWING MEDICATIONS: Lisinopril Oral : 20 mg daily. CONTINUE TAKING THE FOLLOWING MEDICATIONS: AmLODIPine Besylate Oral : 20mg daily. HydrALAZINE HCl Oral : Tablet 50 mg, 1 tablet tid. Ibuprofen Oral : 400 mg daily. Metoprolol Succinate ER Oral : Tablet Extended Release 24 Hour 25 mg, 3 tablets daily, Just increased today. Metoprolol Tartrate Oral : 100 mg day. Percocet Oral : 10/650 mg PRN. Prescription Medications: Bactrim DS 800 mg / 160 mg: take 1 tablet orally every 12 hours for 10 days. No refill. Substitution is permissible. (disp 20 tabs) Cephalexin 500 mg: take 1 capsule orally every 8 hours for 10 days. No refill. (disp 30 caps) Prednisone 50 mg: take 1 orally every day for 5 days. Dispense five (5). No refills. Hydroxyzine 50 mg: take 1 orally every 8 hours. Dispense thirty (30). No refill. (PRN allergy symptoms) Follow-up: Return to the emergency department as needed. Follow up with your doctor in three days. Reason for referral: recheck today's concerns. Summary of care provided to patient via paper. Screening today revealed the patient's blood pressure to be in the hypertensive range. Blood pressure screening was not performed during this visit because the patient has an active diagnosis of hypertension. The patient should follow up with a primary care provider for blood pressure management. Understanding of the discharge instructions verbalized by patient. (Electronically signed by Jey Torres Dr. 07/14/2016 6:09)
--- NOTE | 2016-07-14 06:09 | ED MAR SUMMARY ---
..... Medication Administration Record [facility] [address] [place] [address] Patient: QUINTON GILMORE Visit ID: [id number] 35y, M Weight: 90.7 kg Height/Length: 72 in BMI: 27.1 ALLERGIES: No Known Drug Allergy Given 15:07/11/2016 Lila Suazo R.N. Medication Administered: KEFLEX [PO] (CEPHALEXIN), Dose: 500 mg PO. Medication Ordered: Keflex PO 500 mg (NOW). Given 15:07/11/2016 Lila Suazo R.N. Medication Administered: BACTRIM DS [PO] (SULFAMETHOXAZOLE-TMP DS), Dose: 1 tab PO. Medication Ordered: Bactrim DS PO (Tablet 800-160 mg) 1 tab (NOW). Given 15:07/11/2016 Lila Suazo R.N. Medication Administered: BENADRYL [PO] (DIPHENHYDRAMINE HCL), Dose: 50 mg PO. Medication Ordered: Benadryl PO 50 mg (NOW). Given 15:07/11/2016 Lila Suazo R.N. Medication Administered: PREDNISONE [PO], Dose: 60 mg PO. Medication Ordered: Prednisone PO 60 mg (NOW).
--- NOTE | 2016-07-14 06:09 | ED MED RECONCILIATION SUMMARY ---
Patient: QUINTON GILMORE Medication Reconciliation Report [facility] VisitID: [id number] [address] [place] [address] 35y, M Registration Date/Time: 07/11/2016 Weight: 90.7 kg Height/Length: 72 in. BMI: 27.1 ALLERGIES: No Known Drug Allergy The patient's Home Medications are listed below: STOP TAKING THE FOLLOWING MEDICATIONS: Lisinopril Oral 20 mg, daily CONTINUE TAKING THE FOLLOWING MEDICATIONS: AmLODIPine Besylate Oral 20mg , daily HydrALAZINE HCl Oral (50 mg) 1 tablet, tid Ibuprofen Oral 400 mg, daily Metoprolol Succinate ER Oral (25 mg) 3 tablets , daily, Just increased today Metoprolol Tartrate Oral 100 mg, day Percocet Oral 10/650 mg, PRN The source(s) of the original Home Medication information: patient The following Medications were given to the patient in the Emergency Department: Keflex [PO] PO 500 mg, administered: 07/11/2016 3:53:00 PM Bactrim DS [PO] PO 1 tab, administered: 07/11/2016 3:53:00 PM Benadryl [PO] PO 50 mg, administered: 07/11/2016 3:53:00 PM Prednisone [PO] PO 60 mg, administered: 07/11/2016 3:53:00 PM The following Medications were prescribed to the patient: Bactrim DS 800 mg / 160 mg: take 1 tablet orally every 12 hours for 10 days. No refill. Substitution is permissible.(disp 20 tabs) -- Jey Torres Dr. Cephalexin 500 mg: take 1 capsule orally every 8 hours for 10 days. No refill.(disp 30 caps) -- Jey Torres Dr. Prednisone 50 mg: take 1 orally every day for 5 days. Dispense five (5). No refills. -- Jey Torres Dr. Hydroxyzine 50 mg: take 1 orally every 8 hours. Dispense thirty (30). No refill.(PRN allergy symptoms) -- Jey Torres Dr.
--- NOTE | 2016-07-14 06:09 | ED MED RECONCILIATION SUMMARY ---
Patient: QUINTON GILMORE Medication Reconciliation Report [facility] VisitID: [id number] [address] [place] [address] 35y, M Registration Date/Time: 07/11/2016 Weight: 90.7 kg Height/Length: 72 in. BMI: 27.1 ALLERGIES: No Known Drug Allergy The patient's Home Medications are listed below: STOP TAKING THE FOLLOWING MEDICATIONS: Lisinopril Oral 20 mg, daily CONTINUE TAKING THE FOLLOWING MEDICATIONS: AmLODIPine Besylate Oral 20mg , daily HydrALAZINE HCl Oral (50 mg) 1 tablet, tid Ibuprofen Oral 400 mg, daily Metoprolol Succinate ER Oral (25 mg) 3 tablets , daily, Just increased today Metoprolol Tartrate Oral 100 mg, day Percocet Oral 10/650 mg, PRN The source(s) of the original Home Medication information: patient The following Medications were given to the patient in the Emergency Department: Keflex [PO] PO 500 mg, administered: 07/11/2016 3:53:00 PM Bactrim DS [PO] PO 1 tab, administered: 07/11/2016 3:53:00 PM Benadryl [PO] PO 50 mg, administered: 07/11/2016 3:53:00 PM Prednisone [PO] PO 60 mg, administered: 07/11/2016 3:53:00 PM The following Medications were prescribed to the patient: Bactrim DS 800 mg / 160 mg: take 1 tablet orally every 12 hours for 10 days. No refill. Substitution is permissible.(disp 20 tabs) -- Jey Torres Dr. Cephalexin 500 mg: take 1 capsule orally every 8 hours for 10 days. No refill.(disp 30 caps) -- Jey Torres Dr. Prednisone 50 mg: take 1 orally every day for 5 days. Dispense five (5). No refills. -- Jey Torres Dr. Hydroxyzine 50 mg: take 1 orally every 8 hours. Dispense thirty (30). No refill.(PRN allergy symptoms) -- Jey Torres Dr.
--- NOTE | 2016-07-14 06:09 | ED MAR SUMMARY ---
..... Medication Administration Record [facility] [address] [place] [address] Patient: QUINTON GILMORE Visit ID: [id number] 35y, M Weight: 90.7 kg Height/Length: 72 in BMI: 27.1 ALLERGIES: No Known Drug Allergy Given 15:07/11/2016 Lila Suazo R.N. Medication Administered: KEFLEX [PO] (CEPHALEXIN), Dose: 500 mg PO. Medication Ordered: Keflex PO 500 mg (NOW). Given 15:07/11/2016 Lila Suazo R.N. Medication Administered: BACTRIM DS [PO] (SULFAMETHOXAZOLE-TMP DS), Dose: 1 tab PO. Medication Ordered: Bactrim DS PO (Tablet 800-160 mg) 1 tab (NOW). Given 15:07/11/2016 Lila Suazo R.N. Medication Administered: BENADRYL [PO] (DIPHENHYDRAMINE HCL), Dose: 50 mg PO. Medication Ordered: Benadryl PO 50 mg (NOW). Given 15:07/11/2016 Lila Suazo R.N. Medication Administered: PREDNISONE [PO], Dose: 60 mg PO. Medication Ordered: Prednisone PO 60 mg (NOW).
--- NOTE | 2016-07-14 06:09 | ED DISCHARGE INSTRUCTIONS ---
Patient: QUINTON GILMORE General Instructions Formerly [facility] VisitID: [id number] [address] [place] [address] 35y, M Registration Date/Time: 07/11/2016 07/11/2016 15:27 BP: 183/80. HR: 72. RR: 20. O2 saturation: 100%. Temp: 98.3 F. Pain level now: 2/10. Blood pressure normal. Oxygen saturation normal. Essential hypertension. 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 Cellulitis of the left thigh (acute). INSTRUCTIONS Warnings: GENERAL WARNINGS: Return or contact your physician immediately if your condition worsens or changes unexpectedly, if not improving as expected, or if other problems arise. Specifically return if pain, vomiting, bleeding, breathing difficulty or fever. Your Current Medications: STOP TAKING THE FOLLOWING MEDICATIONS: Lisinopril Oral : 20 mg daily. CONTINUE TAKING THE FOLLOWING MEDICATIONS: AmLODIPine Besylate Oral : 20mg daily. HydrALAZINE HCl Oral : Tablet 50 mg, 1 tablet tid. Ibuprofen Oral : 400 mg daily. Metoprolol Succinate ER Oral : Tablet Extended Release 24 Hour 25 mg, 3 tablets daily, Just increased today. Metoprolol Tartrate Oral : 100 mg day. Percocet Oral : 10/650 mg PRN. Prescription Medications: Bactrim DS 800 mg / 160 mg: take 1 tablet orally every 12 hours for 10 days. No refill. Substitution is permissible. (disp 20 tabs) Cephalexin 500 mg: take 1 capsule orally every 8 hours for 10 days. No refill. (disp 30 caps) Prednisone 50 mg: take 1 orally every day for 5 days. Dispense five (5). No refills. Hydroxyzine 50 mg: take 1 orally every 8 hours. Dispense thirty (30). No refill. (PRN allergy symptoms) Follow-up: Return to the emergency department as needed. Follow up with your doctor in three days. Reason for referral: recheck today's concerns. Summary of care provided to patient via paper. Screening today revealed the patient's blood pressure to be in the hypertensive range. Blood pressure screening was not performed during this visit because the patient has an active diagnosis of hypertension. The patient should follow up with a primary care provider for blood pressure management. Understanding of the discharge instructions verbalized by patient. ADDITIONAL INFORMATION High Blood Pressure --Established High Blood Pressure (Hypertension) is a chronic disease. The cause is unknown in most cases. It can usually be controlled with lifestyle changes and/or medicines. Symptoms of high blood pressure may include headache, dizziness, visual changes, chest pain and shortness of breath. Sometimes it causes no symptoms at all. However, even if there are no symptoms, untreated high blood pressure increases the risk of heart attack, also known as acute myocardial infarction, or AMI, and stroke. It is a serious health risk and should not be ignored. A normal blood pressure is 120/80 or less. The first (top) number is the "systolic" pressure. The second (bottom) number is the "diastolic" pressure. Hypertension exists when either the top number is 140 or higher, OR the bottom number is 90 or higher on repeated measurements. Home Care: All patients with high blood pressure should do the following to lower their pressure. If you are on medicines, then these methods may reduce or eliminate your need for medicines in the future. Begin a weight loss program if you are overweight. Reduce your salt intake. Avoid high salt foods (olives, pickles, smoked meats, salted potato chips, etc.). Do not add salt to your food at the table. Use only small amounts of salt when cooking. Begin an exercise program. Discuss with your doctor what type of exercise program would be best for you. It doesn't have to be difficult. Even brisk walking for 20 minutes three times a week is a good form of exercise. Avoid medicines which contain heart stimulants. This includes many cold and sinus decongestant pills and sprays as well as diet pills. Check the warnings about hypertension on the label. Stimulants such as amphetamine or cocaine could be lethal for someone with hypertension. Never take these. Limit your caffeine intake or switch to caffeine-free products. Stop smoking. If you are a long-time smoker, this can be hard. Enroll in a stop-smoking program to improve your chance of success. Learning how to handle stress better is an important part of any program to lower blood pressure. Learn about relaxation methods such as meditation, yoga or biofeedback. If medicines were prescribed, take them exactly as directed. Missing doses may cause your blood pressure get out of control. Consider buying an automatic blood pressure machine (available at most pharmacies). Use this to monitor your blood pressure at home and report the results to your doctor. Follow Up: Regular visits to your own physician for blood pressure checks and medicine adjustment is an important part of your care. Make a follow-up appointment as directed by our staff. Get Prompt Medical Attention if any of the following occur: Chest pain or shortness of breath Severe headache Throbbing or rushing sound in the ears Nosebleed Sudden severe abdominal pain Extreme drowsiness, confusion or fainting Dizziness or vertigo (dizziness with spinning sensation) Weakness of an arm or leg or one side of the face Difficulty with speech or vision Angioedema Angioedema (pqgwzoiizipxpdr-x-oomdy) is a sudden appearance of swollen patches (edema) on the skin or mucous membranes. The swelling is painless and does not itch. It most often involves the face, lips, mouth, tongue, back of throat or vocal cords. It may also occur in other places such as the arms or legs. A rash may also appear during the first 4 days of this illness. The most common cause for this condition is a side-effect to a class of medicine calledACE inhibitor.This type of drug is used to treat high blood pressure. It includes captopril (Capoten), enalapril (Vasotec) and lisinopril (Prinivil, Zestril). Tell your doctor if you are taking any of these medicines. Other causes of angioedema include allergic reaction to something eaten, touched or inhaled. Angioedema may also be hereditary. In some cases, no cause can be found. Angioedema can lead to the swelling of the air passage in the mouth or throat. Severe swelling can block your breathing and cause . Your doctor believes that you are not at risk for this; however, be alert for early signs of increased swelling in the mouth or throat, or difficulty with swallowing or breathing. Angioedema may recur. It is therefore important to watch for the earliest signs of this condition (below). Return to the hospital promptly if swelling involves the face, mouth or throat areas. Home Care: Rest quietly today. No heavy exertion or excess physical activity. If you were told that your angioedema was from a medicine that you are taking, you must stop taking this medicine. Contact your doctor for a different one. In the future, advise medical staff that you are allergic to this medicine. If medicine was prescribed to treat angioedema (for example, steroids or antihistamines), take it as directed. Oral Benadryl (diphenhydramine) is an antihistamine available at drug and grocery stores. Unless another antihistamine was prescribed, Benadryl may be used to reduce swelling or itching. Use lower doses during the daytime and higher doses at bedtime since the drug may make you sleepy. [NOTE: Do not use Benadryl if you have glaucoma or if you are a man with trouble urinating due to an enlarged prostate.] Claritin (loratidine) is an antihistamine that causes less drowsiness and is a good alternative for daytime use. Follow Up with your doctor or as advised by our staff. Get Prompt Medical Attention if any of the following occur: Increase in swelling of lip, mouth, tongue or throat Trouble swallowing Trouble breathing Severe abdominal pains Cellulitis You have an infection of the skin known as cellulitis. This usually starts with a scrape, cut, insect bite, blister or other opening in the skin which becomes infected. This is a serious condition. It must be watched closely to be sure the infection is not spreading. With antibiotic treatment, the size of the red area will gradually shrink in size until the skin returns to normal. This will take 7-10 days. The red area should never increase in size once the antibiotic medicine has been started. Occasionally, an infection will be resistant to one antibiotic and another one will have to be used. Home Care: 1) Limit the use of the affected part, since excess movement can cause the infection to spread. 2) If the infection is on your leg, walk as little as possible during the first few days of the treatment. Keep your leg elevated while sitting. This will reduce swelling. 3) Take all of the antibiotic medicine exactly as directed until it is gone. Be careful not to miss any doses, especially during the first seven days. Follow Up with your doctor or this facility as directed. Check the infected area daily for the warning signs listed below. Get Prompt Medical Attention if any of the following occur: -- Spreading area of redness -- Increasing swelling or pain -- Appearance of pus or drainage -- Fever over 100.4 F (38.0 C) oral, or over 101.4 F (38.6 C) rectal, after two days on antibiotics Sulfamethoxazole, Trimethoprim Oral tablet What is this medicine? SULFAMETHOXAZOLE; TRIMETHOPRIM or SMX-TMP (suhl fuh meth OK ivette zohl; trye METH oh prim) is a combination of a sulfonamide antibiotic and a second antibiotic, trimethoprim. It is used to treat or prevent certain kinds of bacterial infections. It will not work for colds, flu, or other viral infections. How should I use this medicine? Take this medicine by mouth with a full glass of water. Follow the directions on the prescription label. Take your medicine at regular intervals. Do not take it more often than directed. Do not skip doses or stop your medicine early. Talk to your corporate staff accountant regarding the use of this medicine in children. Special care may be needed. This medicine has been used in children as young as 2 months of age. What side effects may I notice from receiving this medicine? Side effects that you should report to your doctor or health career law clerk as soon as possible: allergic reactions like skin rash or hives, swelling of the face, lips, or tongue breathing problems fever or chills, sore throat irregular heartbeat, chest pain joint or muscle pain pain or difficulty passing urine red pinpoint spots on skin redness, blistering, peeling or loosening of the skin, including inside the mouth unusual bleeding or bruising unusually weak or tired yellowing of the eyes or skin Side effects that usually do not require medical attention (report to your doctor or health career law clerk if they continue or are bothersome): diarrhea dizziness headache loss of appetite nausea, vomiting nervousness What may interact with this medicine? Do not take this medicine with any of the following medications: aminobenzoate potassium dofetilide metronidazole This medicine may also interact with the following medications: YFN inhibitors like benazepril, enalapril, lisinopril, and ramipril cyclosporine digoxin diuretics indomethacin medicines for diabetes methenamine methotrexate phenytoin potassium supplements pyrimethamine sulfinpyrazone tricyclic antidepressants warfarin What if I miss a dose? If you miss a dose, take it as soon as you can. If it is almost time for your next dose, take only that dose. Do not take double or extra doses. Where should I keep my medicine? Keep out of the reach of children. Store at room temperature between 20 to 25 degrees C (68 to 77 degrees F). Protect from light. Throw away any unused medicine after the expiration date. What should I tell my health care provider before I take this medicine? They need to know if you have any of these conditions: anemia asthma being treated with anticonvulsants if you frequently drink alcohol containing drinks kidney disease liver disease low level of folic acid or kfhfhad-0-qwdbqjngm dehydrogenase poor nutrition or malabsorption porphyria severe allergies thyroid disorder an unusual or allergic reaction to sulfamethoxazole, trimethoprim, sulfa drugs, other medicines, foods, dyes, or preservatives or trying to get breast-feeding What should I watch for while using this medicine? Tell your doctor or health career law clerk if your symptoms do not improve. Drink several glasses of water a day to reduce the risk of kidney problems. Do not treat diarrhea with over the counter products. Contact your doctor if you have diarrhea that lasts more than 2 days or if it is severe and watery. This medicine can make you more sensitive to the sun. Keep out of the sun. If you cannot avoid being in the sun, wear protective clothing and use a sunscreen. Do not use sun lamps or tanning beds/booths. Cephalexin Monohydrate Oral tablet What is this medicine? CEPHALEXIN (sef a LILA in) is a cephalosporin antibiotic. It is used to treat certain kinds of bacterial infections It will not work for colds, flu, or other viral infections. How should I use this medicine? Take this medicine by mouth with a full glass of water. Follow the directions on the prescription label. This medicine can be taken with or without food. Take your medicine at regular intervals. Do not take your medicine more often than directed. Take all of your medicine as directed even if you think you are better. Do not skip doses or stop your medicine early. Talk to your corporate staff accountant regarding the use of this medicine in children. While this drug may be prescribed for selected conditions, precautions do apply. What side effects may I notice from receiving this medicine? Side effects that you should report to your doctor or health career law clerk as soon as possible: allergic reactions like skin rash, itching or hives, swelling of the face, lips, or tongue breathing problems pain or trouble passing urine redness, blistering, peeling or loosening of the skin, including inside the mouth severe or watery diarrhea unusually weak or tired yellowing of the eyes, skin Side effects that usually do not require medical attention (report to your doctor or health career law clerk if they continue or are bothersome): gas or heartburn genital or anal irritation headache joint or muscle pain nausea, vomiting What may interact with this medicine? probenecid some other antibiotics What if I miss a dose? If you miss a dose, take it as soon as you can. If it is almost time for your next dose, take only that dose. Do not take double or extra doses. There should be at least 4 to 6 hours between doses. Where should I keep my medicine? Keep out of the reach of children. Store at room temperature between 59 and 86 degrees F (15 and 30 degrees C). Throw away any unused medicine after the expiration date. What should I tell my health care provider before I take this medicine? They need to know if you have any of these conditions: kidney disease stomach or intestine problems, especially colitis an unusual or allergic reaction to cephalexin, other cephalosporins, penicillins, other antibiotics, medicines, foods, dyes or preservatives or trying to get breast-feeding What should I watch for while using this medicine? Tell your doctor or health career law clerk if your symptoms do not begin to improve in a few days. Do not treat diarrhea with over the counter products. Contact your doctor if you have diarrhea that lasts more than 2 days or if it is severe and watery. If you have diabetes, you may get a false-positive result for sugar in your urine. Check with your doctor or health career law clerk. Prednisone Oral tablet What is this medicine? PREDNISONE (PRED ni sone) is a corticosteroid. It is commonly used to treat inflammation of the skin, joints, lungs, and other organs. Common conditions treated include asthma, allergies, and arthritis. It is also used for other conditions, such as blood disorders and diseases of the adrenal glands. How should I use this medicine? Take this medicine by mouth with a glass of water. Follow the directions on the prescription label. Take this medicine with food. If you are taking this medicine once a day, take it in the morning. Do not take more medicine than you are told to take. Do not suddenly stop taking your medicine because you may develop a severe reaction. Your doctor will tell you how much medicine to take. If your doctor wants you to stop the medicine, the dose may be slowly lowered over time to avoid any side effects. Talk to your corporate staff accountant regarding the use of this medicine in children. Special care may be needed. What side effects may I notice from receiving this medicine? Side effects that you should report to your doctor or health career law clerk as soon as possible: allergic reactions like skin rash, itching or hives, swelling of the face, lips, or tongue changes in emotions or moods changes in vision depressed mood eye pain fever or chills, cough, sore throat, pain or difficulty passing urine increased thirst swelling of ankles, feet Side effects that usually do not require medical attention (report to your doctor or health career law clerk if they continue or are bothersome): confusion, excitement, restlessness headache nausea, vomiting skin problems, acne, thin and shiny skin trouble sleeping weight gain What may interact with this medicine? Do not take this medicine with any of the following medications: metyrapone mifepristone This medicine may also interact with the following medications: aminoglutethimide amphotericin B aspirin and aspirin-like medicines barbiturates certain medicines for diabetes, like glipizide or glyburide cholestyramine cholinesterase inhibitors cyclosporine digoxin diuretics ephedrine female hormones, like estrogens and control pills isoniazid ketoconazole NSAIDS, medicines for pain and inflammation, like ibuprofen or naproxen phenytoin rifampin toxoids vaccines warfarin What if I miss a dose? If you miss a dose, take it as soon as you can. If it is almost time for your next dose, talk to your doctor or health career law clerk. You may need to miss a dose or take an extra dose. Do not take double or extra doses without advice. Where should I keep my medicine? Keep out of the reach of children. Store at room temperature between 15 and 30 degrees C (59 and 86 degrees F). Protect from light. Keep container tightly closed. Throw away any unused medicine after the expiration date. What should I tell my health care provider before I take this medicine? They need to know if you have any of these conditions: Shelli's syndrome diabetes glaucoma heart disease high blood pressure infection (especially a virus infection such as chickenpox, cold sores, or herpes) kidney disease liver disease mental illness myasthenia gravis osteoporosis seizures stomach or intestine problems thyroid disease an unusual or allergic reaction to lactose, prednisone, other medicines, foods, dyes, or preservatives or trying to get breast-feeding What should I watch for while using this medicine? Visit your doctor or health career law clerk for regular checks on your progress. If you are taking this medicine over a prolonged period, carry an identification card with your name and address, the type and dose of your medicine, and your doctor's name and address. This medicine may increase your risk of getting an infection. Tell your doctor or health career law clerk if you are around anyone with measles or chickenpox, or if you develop sores or blisters that do not heal properly. If you are going to have surgery, tell your doctor or health career law clerk that you have taken this medicine within the last twelve months. Ask your doctor or health career law clerk about your diet. You may need to lower the amount of salt you eat. This medicine may affect blood sugar levels. If you have diabetes, check with your doctor or health career law clerk before you change your diet or the dose of your diabetic medicine. Hydroxyzine Pamoate Oral capsule What is this medicine? HYDROXYZINE (ciro DROX i zeen) is an antihistamine. This medicine is used to treat allergy symptoms. It is also used to treat anxiety and tension. This medicine can be used with other medicines to induce sleep before surgery. How should I use this medicine? Take this medicine by mouth with a full glass of water. Follow the directions on the prescription label. You may take this medicine with food or on an empty stomach. Take your medicine at regular intervals. Do not take your medicine more often than directed. Talk to your corporate staff accountant regarding the use of this medicine in children. Special care may be needed. While this drug may be prescribed for children as young as 6 years of age for selected conditions, precautions do apply. Patients over 65 years old may have a stronger reaction and need a smaller dose. What side effects may I notice from receiving this medicine? Side effects that you should report to your doctor or health career law clerk as soon as possible: fast or irregular heartbeat difficulty passing urine seizures slurred speech or confusion tremor Side effects that usually do not require medical attention (report to your doctor or health career law clerk if they continue or are bothersome): constipation drowsiness fatigue headache stomach upset What may interact with this medicine? alcohol barbiturate medicines for sleep or seizures medicines for colds, allergies medicines for depression, anxiety, or emotional disturbances medicines for pain medicines for sleep muscle relaxants What if I miss a dose? If you miss a dose, take it as soon as you can. If it is almost time for your next dose, take only that dose. Do not take double or extra doses. Where should I keep my medicine? Keep out of the reach of children. Store at room temperature between 15 and 30 degrees C (59 and 86 degrees F). Keep container tightly closed. Throw away any unused medicine after the expiration date. What should I tell my health care provider before I take this medicine? They need to know if you have any of these conditions: any chronic illness difficulty passing urine glaucoma heart disease kidney disease liver disease lung disease an unusual or allergic reaction to hydroxyzine, cetirizine, other medicines, foods, dyes, or preservatives or trying to get breast-feeding What should I watch for while using this medicine? Tell your doctor or health career law clerk if your symptoms do not improve. You may get drowsy or dizzy. Do not drive, use machinery, or do anything that needs mental alertness until you know how this medicine affects you. Do not stand or sit up quickly, especially if you are an older patient. This reduces the risk of dizzy or fainting spells. Alcohol may interfere with the effect of this medicine. Avoid alcoholic drinks. Your mouth may get dry. Chewing sugarless gum or sucking hard candy, and drinking plenty of water may help. Contact your doctor if the problem does not go away or is severe. This medicine may cause dry eyes and blurred vision. If you wear contact lenses you may feel some discomfort. Lubricating drops may help. See your eye doctor if the problem does not go away or is severe. If you are receiving skin tests for allergies, tell your doctor you are using this medicine. You have been given the following additional information: Hypertension, Established Angioedema Cellulitis Sulfamethoxazole, Trimethoprim Oral tablet Cephalexin Monohydrate Oral tablet Prednisone Oral tablet Hydroxyzine Pamoate Oral capsule (Electronically signed by Jey Torres Dr. 07/14/2016 6:09)
== END 2016-07-11 16:10 | disposition home or self-care (01) ==
LOC: ED SRH 15:09
DX: T78.3XXA Angioneurotic edema, initial encounter (principal); T46.4X5A Adverse effect of angiotensin-converting-enzyme inhibitors, initial encounter; I10 Essential (primary) hypertension; L03.116 Cellulitis of left lower limb; Z79.1 Long term (current) use of non-steroidal anti-inflammatories (NSAID); Z79.899 Other long term (current) drug therapy